=== PATIENT | female | born 1985 | race American Indian/Alaskan Native ===

== ENCOUNTER 2016-05-06 02:16 | Outpatient (CLI) | payer MEDICAID ==
[2016-05-06] MEDS ORDERED: LACTATED RINGERS 1,000 ML IV ONE (02:29)
[2016-05-06 03:11] VITALS: BP 166/66
[2016-05-06] MEDS ORDERED: ZOFRAN IV ONE (03:12)
[2016-05-06] MEDS: BRETHINE SUB-Q SCH ×2 (03:23→03:52)
[2016-05-06 03:30] LABS: Bilirubin,Urine NEG (Negative); Blood,Urine SM (Negative); Ketones,Urine NEG (Negative); Leukocyte Esterase,Urine SM (Negative); Nitrite,Urine NEG (Negative); Protein,Urine <15 mg/dL mg/dL (Negative); Urobilinogen,Urine < 2.0 mg/dL (<2.0); WBC,Urine < 1.0 /HPF (0.0-6.0)
[2016-05-06] MEDS ORDERED: LACTATED RINGERS 1,000 ML IV SCH (04:00)
== END 2016-05-06 04:32 | disposition home or self-care (01) ==
LOC: TRG 02:16
PROVIDERS: ATTEND Obstetrics & Gynecology
DX: O77.9 Labor and delivery complicated by fetal stress, unspecified (principal); O47.9 False labor, unspecified; Z3A.00 Weeks of gestation of pregnancy not specified
CPT/HCPCS: 59025; 81001; 96360; J2405; J3105; J7120